=== PATIENT | male | born 1995 | race Caucasian/White ===

== ENCOUNTER 2016-04-03 19:56 | Inpatient (IN) | payer BC ==
[~2016-04-03] VITALS: Ht 190.5 cm; Wt 83.0 kg
[2016-04-03 19:28] VITALS: O2SAT 100
[~2016-04-03 19:56] MED LIST: LACTATED RINGER'S 1000 ML INJ 1,000 ML IV ONE; NORMOSOL R INJ 3,000 ML IV ONE; ONDANSETRON HCL 4 MG/2 ML VIAL IV PUSH ONE; PROPOFOL 200 MG/20 ML AMP IV ONE; SODIUM CHLOR 0.9% 250 ML INJ 250 ML IV ONE
[2016-04-03] MEDS ORDERED: ROCURONIUM INJ 50 MG/5 ML VIAL ONE (20:15)
[2016-04-03] MEDS ORDERED: MIDAZOLAM HCL 5 MG/ML VIAL (1 ML) ONE (20:15)
[2016-04-03 20:19] LABS: I-STAT POTASSIUM 3.4 MMOL/L (3.5-4.9)
[2016-04-03 20:24] VITALS: O2SAT 100
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
[2016-04-03 20:54] LABS: BLOOD GAS BASE EXCESS -4.5 mmol/L (-2-2); BLOOD GAS CARBOXYHEMOGLOBIN 2.6 % (0-4); BLOOD GAS HCO3 20 mmol/L (22-26); BLOOD GAS METHEMOGLOBIN 1.1 % (0-2); BLOOD GAS O2 HGB SATURATION 96 % (90-100); BLOOD GAS OXYGEN CONTENT 15.4 Vol % (12.0-20.0); BLOOD GAS PCO2 37 mmHg (38-42); BLOOD GAS PO2 469 mmHg (61-120); BLOOD GAS TOTAL HGB 10.5 G/DL (12.0-16.0); CRITICAL VALUE NO; OXYGEN DEVICE VENTILATOR; TEMP CORR TO 98.6
[2016-04-03 20:55] LABS: DRAW SITE ART LINE; FIO2 100 %; STAT YES
[2016-04-03 21:25] LABS: AUTOMATED NEUTROPHIL # 7.2 TH/MM3 (1.8-7.7); BASOPHIL # 0.1 TH/MM3 (0-0.2); BASOPHIL % 0.6 % (0.0-2.0); EOSINOPHIL # 0.1 TH/MM3 (0-0.4); EOSINOPHIL % 0.8 % (0.0-4.0); HEMO FLAGS DIFF FINAL; LYMPH % 29.1 % (9.0-44.0); LYMPHOCYTE # 3.3 TH/MM3 (1.0-4.8); MEAN CELL VOLUME 90.2 FL (80.0-100.0); MEAN CORPUSCULAR HEMOGLOBIN 30.2 PG (27.0-34.0); MEAN CORPUSCULAR HGB CONC 33.5 % (32.0-36.0); MONO % 6.2 % (0.0-8.0); NEUT % 63.3 % (16.0-70.0); PLATELET COUNT 284 TH/MM3 (150-450); RED BLOOD COUNT 4.22 MIL/MM3 (4.50-5.90); RED CELL DISTRIBUTION WIDTH 12.6 % (11.6-17.2); WHITE BLOOD COUNT 11.4 TH/MM3 (4.0-11.0)
[2016-04-03 21:39] LABS: APTT (PATIENT) 22.6 SEC (24.3-30.1); PROTHROMBIN TIME - PATIENT 11.5 SEC (9.8-11.6)
[2016-04-03 22:07] LABS: BLOOD GAS CARBOXYHEMOGLOBIN 2.7 % (0-4); BLOOD GAS HCO3 22 mmol/L (22-26); BLOOD GAS METHEMOGLOBIN 1.2 % (0-2); BLOOD GAS O2 HGB SATURATION 94 % (90-100); BLOOD GAS PCO2 47 mmHg (38-42); BLOOD GAS PO2 108 mmHg (61-120); BLOOD GAS TOTAL HGB 10.4 G/DL (12.0-16.0); CRITICAL VALUE NO; DRAW SITE ART LINE; FIO2 60 %; OXYGEN DEVICE VENTILATOR; STAT YES; TEMP CORR TO 98.6
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
[2016-04-03] MEDS ORDERED: MIDAZOLAM HCL 2 MG/2 ML VIAL ONE (22:56)
[2016-04-03] MEDS ORDERED: fentaNYL CITRATE 250 MCG/5 ML AMP ONE (22:56)
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
[2016-04-03] MEDS ORDERED: PROPOFOL 1000 MG/100 ML INJ 100 ML ONE (23:09)
--- NOTE | 2016-04-03 23:12 | PD.OP ---
Operative Report right hemothorax Postoperative Diagnosis: Right hemothorax Procedure: Right chest was sterilely prepped and draped using the usual technique. Fifth ICR-incision was performed-carried out to subcutaneous tissue. Pleura entered at the marked superior margin of the rib. 32 Swiss chest tube was inserted and secured to skin with #1 silk. Chest x-ray shows good position of chest tube. Surgeon: Dagmar Harp Licensed Loan Officer Assistant(s): None Operation and Findings: Right chest tube thoracostomy Dagmar Harp MD Apr 03, 2016 23:12
[2016-04-03] MEDS ORDERED: SODIUM CHLORIDE 0.9% FLUSH 5 ML FLUSH IVF PRN (23:15)
[2016-04-03] MEDS ORDERED: Post-op Orders (for Pharmacy) MISC XX ONE (23:15)
[2016-04-03] MEDS ORDERED: NALOXONE HCL 0.4 MG/ML AMP IV PRN (23:15)
[2016-04-03] MEDS ORDERED: PROPOFOL 1000 MG/100 ML INJ 100 ML IV SCH (23:15)
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
[2016-04-03 23:25] VITALS: O2SAT 100
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
[2016-04-04] VITALS (18 sets, daily range): BP systolic 115–163; BP diastolic 55–86; PULSE 53–90; RESP 14–22; TEMP 97.2–98.9; O2SAT 93–100
[2016-04-04] MEDS ORDERED: fentaNYL 2,500 MCG/NS 250 ML IV SCH ×2 (01:00→23:45)
[2016-04-04 01:26] LABS: BLOOD GAS BASE EXCESS -0.4 mmol/L (-2-2); BLOOD GAS CARBOXYHEMOGLOBIN 1.5 % (0-4); BLOOD GAS HCO3 25 mmol/L (22-26); BLOOD GAS METHEMOGLOBIN 1.1 % (0-2); BLOOD GAS O2 HGB SATURATION 97 % (90-100); BLOOD GAS OXYGEN CONTENT 17.3 Vol % (12.0-20.0); BLOOD GAS PCO2 46 mmHg (38-42); BLOOD GAS PO2 219 mmHg (61-120); BLOOD GAS TOTAL HGB 12.3 G/DL (12.0-16.0); TEMP CORR TO 98.6
[2016-04-04 01:27] LABS: CRITICAL VALUE NO; DRAW SITE ART LINE; FIO2 50 %; OXYGEN DEVICE VENTILATOR; STAT NO; VENT SETTINGS PRVC/AC
[2016-04-04] MEDS: CLINDAMYCIN INJ 600 MG in SODIUM CHLORIDE 0.9% INJ 50 ML IV SCH ×3 (02:30→16:00)
[2016-04-04] MEDS: PROPOFOL 1000 MG/100 ML IV SCH ×5 (02:30→09:40)
[2016-04-04] MEDS: SODIUM CHLOR 0.9% 1000 ML INJ 1,000 ML IV SCH ×3 (02:31→17:16)
[2016-04-04] MEDS: PANTOPRAZOLE SODIUM 40 MG VIAL IV SCH ×2 (02:47→20:06)
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
[2016-04-04] MEDS ORDERED: POTASSIUM CHLOR 40 MEQ PREMIX 100 ML IV PRN ×2 (06:30)
[2016-04-04] MEDS ORDERED: POTASSIUM PHOSPHATE INJ 30 MMOL in SODIUM CHLOR 0.9% 250 ML INJ 250 ML IV PRN (06:30)
[2016-04-04] MEDS ORDERED: POTASSIUM PHOSPHATE MONOBASIC 500 MG TAB PO/TUBE PRN (06:30)
[2016-04-04] MEDS ORDERED: POTASSIUM PHOSPHATE MONOBASIC 500 MG TAB PO PRN (06:30)
[2016-04-04] MEDS ORDERED: POTASSIUM CL 40 MEQ/30 ML LIQ UDC PO/TUBE PRN ×2 (06:30)
[2016-04-04] MEDS ORDERED: MAGNESIUM OXIDE 400 MG TAB PO PRN (06:30)
[2016-04-04] MEDS ORDERED: MAGNESIUM SULFATE INJ 4 GM in SODIUM CHLORIDE 0.9% INJ 92 ML IV PRN (06:30)
[2016-04-04] MEDS ORDERED: SODIUM PHOSPHATE INJ 30 MMOL in SODIUM CHLOR 0.9% 250 ML INJ 240 ML IV PRN (06:30)
[2016-04-04] MEDS ORDERED: POTASSIUM CHLOR 20 MEQ PREMIX 100 ML IV PRN ×2 (06:30)
[2016-04-04] MEDS ORDERED: MAGNESIUM SULFATE INJ 2 GM in SODIUM CHLORIDE 0.9% INJ 96 ML IV PRN (06:30)
[2016-04-04] MEDS ORDERED: ETOMIDATE 20 MG/10 ML VIAL ONE (06:37)
[2016-04-04] MEDS ORDERED: ROCURONIUM INJ 50 MG/5 ML VIAL ONE (06:38)
[2016-04-04] MEDS ORDERED: SUCCINYLCHOLINE CHLORIDE 200 MG/10 ML VIAL ONE (06:39)
[2016-04-04] MEDS ORDERED: RESP: ALBUTEROL 2.5 MG/IPRATROPIUM 0.5 MG NEB (PRN) NEB (07:30)
[2016-04-04] MEDS ORDERED: CHLORHEXIDINE 0.12% (ORAL KIT) 15 ML CUP MT SCH (08:00)
[2016-04-04] MEDS: DOCUSATE SODIUM 100 MG CAP PO SCH ×2 (08:14→20:06)
[2016-04-04] MEDS: SODIUM CHLORIDE 0.9% FLUSH 5 ML FLUSH IVF SCH ×2 (09:40→20:50)
[2016-04-04] MEDS: MAGNESIUM HYDROXIDE SUSP 30 ML CUP PO SCH (09:40)
[2016-04-04 09:44] LABS: HEMATOCRIT 33.9 % (39.0-51.0); MEAN CELL VOLUME 87.7 FL (80.0-100.0); MEAN CORPUSCULAR HEMOGLOBIN 30.1 PG (27.0-34.0); MEAN CORPUSCULAR HGB CONC 34.3 % (32.0-36.0); PLATELET COUNT 160 TH/MM3 (150-450); RED BLOOD COUNT 3.86 MIL/MM3 (4.50-5.90); RED CELL DISTRIBUTION WIDTH 14.6 % (11.6-17.2); WHITE BLOOD COUNT 16.5 TH/MM3 (4.0-11.0)
[2016-04-04 10:18] LABS: BICARBONATE 25.9 MEQ/L (21.0-32.0); POTASSIUM 4.5 MEQ/L (3.5-5.1)
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
[2016-04-04] MEDS: ACETAMINOPHEN/HYDROcodone 325 MG/10 MG TAB PO PRN ×4 (11:30→23:52)
[2016-04-04] MEDS: MORPHINE SULFATE 4 MG/ML INJ IV PUSH PRN ×2 (11:30→14:30)
[2016-04-04 11:39] LABS: BANDS 5 % (0-6); METAMYELOCYTES 1 % (0-1); PLATELET ESTIMATE SMEAR NORMAL (NORMAL); PLATELET MORPHOLOGY NORMAL (NORMAL); POLYS (SEG NEUTROPHILS) 91 % (16-70); SCAN/DIFF FINAL DIFF MANUAL; WBC DIFF SAMPLE 100
[2016-04-04] MEDS ORDERED: DEXMEDETOMIDINE INJ 50 ML IV SCH (13:15)
[2016-04-04] MEDS: LORazepam 2 MG/ML VIAL IVP PRN ×2 (15:30→23:52)
[2016-04-04] MEDS: MORPHINE SULFATE 30 MG/30 ML PCA IV SCH ×2 (16:43→20:07)
[2016-04-04] MEDS: PCA - TOTAL MG MORPHINE DELIVERED PER SHIFT SCH (20:27)
[2016-04-04] MEDS ORDERED: PROPOFOL 1000 MG/100 ML IV SCH (23:45)
[2016-04-05] VITALS: BP 130/67; PULSE 72; RESP 19; TEMP 97.2; O2SAT 100
[2016-04-05] MEDS: CYCLOBENZAPRINE HCL 10 MG TAB PO PRN ×3 (02:46→18:11)
[2016-04-05] MEDS: LORazepam 2 MG/ML VIAL IVP PRN ×5 (03:50→20:56)
[2016-04-05] MEDS: ACETAMINOPHEN/HYDROcodone 325 MG/10 MG TAB PO PRN ×2 (03:50→07:49)
[2016-04-05] MEDS: MORPHINE SULFATE 30 MG/30 ML PCA IV SCH ×3 (03:51→17:49)
[2016-04-05 04:00] VITALS: BP 132/66; PULSE 76; RESP 20; TEMP 96; O2SAT 98
[2016-04-05] MEDS: SODIUM CHLOR 0.9% 1000 ML INJ 1,000 ML IV SCH (04:03)
[2016-04-05] MEDS: PCA - TOTAL MG MORPHINE DELIVERED PER SHIFT SCH ×3 (04:03→22:00)
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
[2016-04-05] MEDS: DOCUSATE SODIUM 100 MG CAP PO SCH (07:49)
[2016-04-05] MEDS: SODIUM CHLORIDE 0.9% FLUSH 5 ML FLUSH IVF SCH ×2 (07:51→19:35)
[2016-04-05] MEDS: MAGNESIUM HYDROXIDE SUSP 30 ML CUP PO SCH (07:53)
[2016-04-05 08:00] VITALS: BP 118/75; PULSE 76; RESP 18; TEMP 97.5; O2SAT 100
[2016-04-05] MEDS ORDERED: LACTULOSE SYRUP 20 GM/30 ML CUP PO ONE (08:30)
[2016-04-05] MEDS: DOCUSATE SODIUM 50 MG/SENNA 8.6 MG TAB PO SCH ×2 (10:14→19:36)
[2016-04-05] MEDS: MORPHINE SULFATE 4 MG/ML INJ IV PUSH PRN (10:14)
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
[2016-04-05 12:00] VITALS: BP 121/57; PULSE 70; RESP 20; TEMP 97.4; O2SAT 99
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
[2016-04-05] MEDS: MORPHINE SULFATE 4 MG/ML INJ IV PRN ×4 (15:02→23:53)
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
[2016-04-05 16:00] VITALS: BP 126/67; PULSE 74; RESP 19; TEMP 96.9; O2SAT 97
[2016-04-05] MEDS: chlorproMAZINE HCL 25 MG TAB PO SCH ×2 (17:11→23:52)
[2016-04-05] MEDS: FAMOTIDINE 20 MG TAB PO SCH (19:36)
[2016-04-05 20:00] VITALS: BP 132/68; PULSE 72; RESP 18; TEMP 96.4; O2SAT 96
[2016-04-06] VITALS: BP 126/64; PULSE 84; RESP 20; TEMP 98; O2SAT 97
[2016-04-06] MEDS: LORazepam 2 MG/ML VIAL IVP PRN ×6 (00:59→23:55)
[2016-04-06] MEDS: MORPHINE SULFATE 30 MG/30 ML PCA IV SCH ×4 (01:06→21:20)
[2016-04-06] MEDS: CYCLOBENZAPRINE HCL 10 MG TAB PO PRN ×3 (01:57→18:03)
[2016-04-06] MEDS: MORPHINE SULFATE 4 MG/ML INJ IV PRN ×7 (02:54→23:56)
[2016-04-06 04:00] VITALS: BP 130/76; PULSE 89; RESP 16; TEMP 97.8; O2SAT 99
[2016-04-06] MEDS: PCA - TOTAL MG MORPHINE DELIVERED PER SHIFT SCH ×3 (06:00→22:00)
[2016-04-06 08:00] VITALS: BP 122/75; PULSE 95; RESP 17; TEMP 97.6; O2SAT 99
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
[2016-04-06] MEDS: chlorproMAZINE HCL 25 MG TAB PO SCH ×3 (08:41→23:55)
[2016-04-06] MEDS: DOCUSATE SODIUM 50 MG/SENNA 8.6 MG TAB PO SCH ×2 (08:41→19:33)
[2016-04-06] MEDS: SODIUM CHLORIDE 0.9% FLUSH 5 ML FLUSH IVF SCH ×2 (08:41→19:33)
[2016-04-06] MEDS: FAMOTIDINE 20 MG TAB PO SCH ×2 (08:42→19:33)
[2016-04-06] MEDS: MAGNESIUM HYDROXIDE SUSP 30 ML CUP PO SCH ×2 (08:42→12:19)
[2016-04-06 09:16] LABS: HEMATOCRIT 34.5 % (39.0-51.0); MEAN CELL VOLUME 88.4 FL (80.0-100.0); MEAN CORPUSCULAR HEMOGLOBIN 30.5 PG (27.0-34.0); MEAN CORPUSCULAR HGB CONC 34.5 % (32.0-36.0); PLATELET COUNT 169 TH/MM3 (150-450); RED CELL DISTRIBUTION WIDTH 13.7 % (11.6-17.2); REVIEW FLAG FINAL; WHITE BLOOD COUNT 9.5 TH/MM3 (4.0-11.0)
[2016-04-06 09:41] LABS: BICARBONATE 32.1 MEQ/L (21.0-32.0); POTASSIUM 3.8 MEQ/L (3.5-5.1)
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
[2016-04-06 12:00] VITALS: BP 119/67; PULSE 96; RESP 17; TEMP 97.6; O2SAT 98
[2016-04-06] MEDS: NICOTINE 21 MG/24 HR PATCH TD SCH (12:02)
[2016-04-06 18:00] VITALS: BP 125/76; PULSE 106; RESP 17; TEMP 96.1; O2SAT 98
[2016-04-06] MEDS: ENOXAPARIN SODIUM 40 MG/0.4 ML SYRINGE SQ SCH (18:06)
[2016-04-06 20:00] VITALS: BP 124/76; PULSE 98; RESP 20; TEMP 96.8; O2SAT 95
[2016-04-07] VITALS: BP 128/74; PULSE 96; RESP 20; TEMP 98.4; O2SAT 95
[2016-04-07] MEDS: CYCLOBENZAPRINE HCL 10 MG TAB PO PRN ×3 (02:00→18:42)
[2016-04-07] MEDS: MORPHINE SULFATE 4 MG/ML INJ IV PRN ×6 (02:57→21:23)
[2016-04-07] MEDS: MORPHINE SULFATE 30 MG/30 ML PCA IV SCH ×3 (03:24→18:46)
[2016-04-07 04:00] VITALS: BP 122/72; PULSE 94; RESP 22; TEMP 98.6; O2SAT 97
[2016-04-07] MEDS: LORazepam 2 MG/ML VIAL IVP PRN ×5 (04:01→21:23)
[2016-04-07] MEDS: PCA - TOTAL MG MORPHINE DELIVERED PER SHIFT SCH ×3 (06:00→21:24)
[2016-04-07] MEDS ORDERED: MAGNESIUM HYDROXIDE SUSP 30 ML CUP PO PRN (07:30)
[2016-04-07 08:00] VITALS: BP 120/76; PULSE 118; RESP 17; TEMP 95.4; O2SAT 97
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
[2016-04-07] MEDS: DOCUSATE SODIUM 50 MG/SENNA 8.6 MG TAB PO SCH ×2 (08:46→21:24)
[2016-04-07] MEDS: NICOTINE 21 MG/24 HR PATCH TD SCH (08:47)
[2016-04-07] MEDS: REMOVE OLD NICODERM (NICOTINE) PATCH TD SCH (08:47)
[2016-04-07] MEDS: SODIUM CHLORIDE 0.9% FLUSH 5 ML FLUSH IVF SCH ×2 (08:48→21:24)
[2016-04-07] MEDS: chlorproMAZINE HCL 25 MG TAB PO SCH ×3 (08:48→23:14)
[2016-04-07] MEDS: FAMOTIDINE 20 MG TAB PO SCH ×2 (08:48→21:24)
[2016-04-07] MEDS: LACTULOSE SYRUP 20 GM/30 ML CUP PO SCH (08:48)
[2016-04-07 12:00] VITALS: BP 121/74; PULSE 123; RESP 17; TEMP 96.7; O2SAT 99
[2016-04-07] MEDS: ONDANSETRON HCL 4 MG/2 ML VIAL IV PUSH PRN ×2 (12:02→17:09)
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
[2016-04-07 16:00] VITALS: BP 122/62; PULSE 100; RESP 17; TEMP 98.5; O2SAT 98
[2016-04-07] MEDS: ENOXAPARIN SODIUM 40 MG/0.4 ML SYRINGE SQ SCH (16:30)
[2016-04-07 20:38] VITALS: BP 135/70; PULSE 101; RESP 20; TEMP 98; O2SAT 98
[2016-04-07] MEDS ORDERED: WALKER WHEELS/F1 MIS (22:00)
[2016-04-08] MEDS: MORPHINE SULFATE 4 MG/ML INJ IV PRN ×3 (02:37→08:12)
[2016-04-08 03:57] VITALS: BP 124/79; PULSE 94; RESP 17; TEMP 96.9; O2SAT 94
[2016-04-08] MEDS: PCA - TOTAL MG MORPHINE DELIVERED PER SHIFT SCH (04:45)
[2016-04-08] MEDS: MORPHINE SULFATE 30 MG/30 ML PCA IV SCH (04:47)
[2016-04-08] MEDS: CYCLOBENZAPRINE HCL 10 MG TAB PO PRN (06:16)
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
[2016-04-08 08:00] VITALS: BP 135/69; PULSE 98; RESP 20; TEMP 98; O2SAT 98
[2016-04-08] MEDS: REMOVE OLD NICODERM (NICOTINE) PATCH TD SCH (08:06)
[2016-04-08] MEDS: NICOTINE 21 MG/24 HR PATCH TD SCH (08:06)
[2016-04-08] MEDS: chlorproMAZINE HCL 25 MG TAB PO SCH ×3 (08:07→23:16)
[2016-04-08] MEDS: DOCUSATE SODIUM 50 MG/SENNA 8.6 MG TAB PO SCH ×2 (08:07→19:50)
[2016-04-08] MEDS: LACTULOSE SYRUP 20 GM/30 ML CUP PO SCH ×2 (08:07→09:00)
[2016-04-08] MEDS: SODIUM CHLORIDE 0.9% FLUSH 5 ML FLUSH IVF SCH ×2 (08:07→19:50)
[2016-04-08] MEDS: LORazepam 2 MG/ML VIAL IVP PRN (08:12)
[2016-04-08 09:19] VITALS: O2SAT 97
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
[2016-04-08] MEDS: oxyCODONE/ACETAMINOPHEN 5 MG/325 MG TAB PO PRN ×3 (11:42→19:51)
[2016-04-08 12:00] VITALS: BP 133/79; PULSE 115; RESP 18; TEMP 97.5; O2SAT 95
[2016-04-08] MEDS ORDERED: oxyCODONE/ACETAMINOPHEN 5 MG/325 MG TAB PO PRN (12:00)
[2016-04-08] MEDS: NYSTATIN SUSP 500,000 U/5 ML CUP SWISH-SWAL SCH ×3 (12:13→19:51)
[2016-04-08] MEDS: KETOROLAC TROMETHAMINE 30 MG/ML (IVP) VIAL IV PUSH SCH ×3 (12:14→23:16)
[2016-04-08] MEDS: ENOXAPARIN SODIUM 40 MG/0.4 ML SYRINGE SQ SCH (15:56)
[2016-04-08 16:00] VITALS: BP 127/56; PULSE 99; RESP 18; TEMP 98.8; O2SAT 98
[2016-04-08] MEDS: FAMOTIDINE 20 MG TAB PO SCH (19:50)
[2016-04-08 20:00] VITALS: BP 138/95; PULSE 85; RESP 20; TEMP 96.8; O2SAT 100
[2016-04-09] VITALS: BP 133/89; PULSE 87; RESP 21; TEMP 98.4; O2SAT 100
[2016-04-09] MEDS: oxyCODONE/ACETAMINOPHEN 5 MG/325 MG TAB PO PRN ×5 (00:06→16:41)
[2016-04-09] MEDS: KETOROLAC TROMETHAMINE 30 MG/ML (IVP) VIAL IV PUSH SCH ×2 (04:25→11:43)
--- NOTE | 2016-04-09 06:05 | RADRPT ---
EXAM DATE/TIME: 04/09/2016 04:56 [facility] COMPARISON: CHEST SINGLE AP, April 08, 2016, 6:03. INDICATIONS : Shortness of breath, possible pulmonary disease. MEDICAL HISTORY : None. SURGICAL HISTORY : None. ENCOUNTER: Subsequent ACUITY: 1 week PAIN SCORE: 10/10 LOCATION: Bilateral chest FINDINGS: The cardiac silhouette is enlarged in transverse diameter. The right chest it has been removed and th ere is a small right apical pneumothorax. There are no signs of tension. There is no evidence of pne umonia. CONCLUSION: 1. Small right apical pneumothorax following chest tube removal Fernando Patel MD on April 09, 2016 at 6:02 Board Certified Radiologist. This report was verified electronically.
[2016-04-09 07:11] LABS: MEAN CELL VOLUME 88.1 FL (80.0-100.0); MEAN CORPUSCULAR HEMOGLOBIN 30.7 PG (27.0-34.0); MEAN CORPUSCULAR HGB CONC 34.8 % (32.0-36.0); PLATELET COUNT 245 TH/MM3 (150-450); RED BLOOD COUNT 4.09 MIL/MM3 (4.50-5.90); RED CELL DISTRIBUTION WIDTH 13.4 % (11.6-17.2); REVIEW FLAG FINAL; WHITE BLOOD COUNT 6.9 TH/MM3 (4.0-11.0)
[2016-04-09 07:30] LABS: BICARBONATE 26.8 MEQ/L (21.0-32.0)
[2016-04-09 07:32] LABS: POTASSIUM 4.1 MEQ/L (3.5-5.1)
[2016-04-09 08:00] VITALS: BP 122/76; PULSE 77; RESP 18; TEMP 97.9; O2SAT 100
[2016-04-09] MEDS: LACTULOSE SYRUP 20 GM/30 ML CUP PO SCH (08:28)
[2016-04-09] MEDS: NYSTATIN SUSP 500,000 U/5 ML CUP SWISH-SWAL SCH ×2 (08:28→11:43)
[2016-04-09] MEDS: REMOVE OLD NICODERM (NICOTINE) PATCH TD SCH (08:28)
[2016-04-09] MEDS: NICOTINE 21 MG/24 HR PATCH TD SCH (08:28)
[2016-04-09] MEDS: DOCUSATE SODIUM 50 MG/SENNA 8.6 MG TAB PO SCH (08:29)
[2016-04-09] MEDS: chlorproMAZINE HCL 25 MG TAB PO SCH ×2 (08:29→16:00)
[2016-04-09] MEDS: SODIUM CHLORIDE 0.9% FLUSH 5 ML FLUSH IVF SCH (08:29)
[2016-04-09 08:42] VITALS: O2SAT 99
[2016-04-09] MEDS ORDERED: SENN1TAB PO (08:54)
[2016-04-09] MEDS ORDERED: MILKSUS PO (08:54)
[2016-04-09] MEDS: LORazepam 2 MG/ML VIAL IVP PRN (09:50)
[2016-04-09 12:00] VITALS: BP 136/64; PULSE 78; RESP 20; TEMP 98.1; O2SAT 100
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
[2016-04-09 16:00] VITALS: BP 124/86; PULSE 95; RESP 20; TEMP 98; O2SAT 99
[2016-04-09] MEDS: ENOXAPARIN SODIUM 40 MG/0.4 ML SYRINGE SQ SCH (17:00)
== END 2016-04-09 17:04 | disposition home or self-care (01) | DRG 957 ==
LOC: NEPI 19:56 → NEDA 21:34 → EDBD 21:34 → HPAC 22:00 → N03B 23:25 → N07A 04-04 20:41
PROVIDERS: ADMIT Surgery Trauma Surgery; ATTEND Surgery Trauma Surgery
PROC: 0WJG0ZZ Inspection of Peritoneal Cavity, Open Approach (ICD-10-PCS; 2016-04-03)
PROC: 5A1935Z Respiratory Ventilation, Less than 24 Consecutive Hours (ICD-10-PCS; 2016-04-03)
PROC: 0BH17EZ Insertion of Endotracheal Airway into Trachea, Via Natural or Artificial Opening (ICD-10-PCS; 2016-04-03)
PROC: 0W9930Z Drainage of Right Pleural Cavity with Drainage Device, Percutaneous Approach (ICD-10-PCS; 2016-04-03)
PROC: 30233N1 Transfusion of Nonautologous Red Blood Cells into Peripheral Vein, Percutaneous Approach (ICD-10-PCS; 2016-04-03)
PROC: 30233K1 Transfusion of Nonautologous Frozen Plasma into Peripheral Vein, Percutaneous Approach (ICD-10-PCS; 2016-04-03)
PROC: 30233R1 Transfusion of Nonautologous Platelets into Peripheral Vein, Percutaneous Approach (ICD-10-PCS; 2016-04-03)
PROC: 02Q Heart and Great Vessels, Repair (ICD-10-PCS; principal; 2016-04-03 20:28)
PROC: 0BBF0ZZ Excision of Right Lower Lung Lobe, Open Approach (ICD-10-PCS; 2016-04-03 20:28)
DX: S21.311A Laceration without foreign body of right front wall of thorax with penetration into thoracic cavity, initial encounter (principal); J96.90 Respiratory failure, unspecified, unspecified whether with hypoxia or hypercapnia; S36.09XA Other injury of spleen, initial encounter; S27.1XXA Traumatic hemothorax, initial encounter; T79.4XXA Traumatic shock, initial encounter; S25 Injury of blood vessels of thorax; S31.614A Laceration without foreign body of abdominal wall, left lower quadrant with penetration into peritoneal cavity, initial encounter; J93.9 Pneumothorax, unspecified; K56.7 Ileus, unspecified; S27.331A Laceration of lung, unilateral, initial encounter; F43.24 Adjustment disorder with disturbance of conduct; F90.9 Attention-deficit hyperactivity disorder, unspecified type; W45.8XXA Other foreign body or object entering through skin, initial encounter
CPT/HCPCS: 31500; 32551; 36430; 43753; 71010; 80048; 82435; 82565; 82805; 82947; 83735; 84132; 84295; 84520; 85007; 85025; 85027; 85610; 85730; 86850; 86900; 86901; 86920; 86927; 87641; 90471; 94003; 94150; 94667; 94668; 96374; 96375; 99291; A0431-QM-SH; A0436-QM-SH; C9113; G0390; J0330; J1650; J1885; J2060; J2250; J2270; J2405; J3010; J7030; J7050; J7120; P9016; P9017; P9035